=== PATIENT | female | born 1990 | race Two or more races ===

== ENCOUNTER 2020-03-24 17:17 | Outpatient (REF) | payer OTHER, SELFPAY ==
[2020-03-24 17:55] LABS: COVID-19 Test Negative (Negative)
== END 2020-03-24 17:18 | disposition home or self-care (01) ==
LOC: HO.EMPCOV 17:17
PROVIDERS: Visit Provider Internal Medicine
DX: Z20.828 Contact with and (suspected) exposure to other viral communicable diseases (principal)
CPT/HCPCS: 36415; 87635; C9803